=== PATIENT | male | born 1940 | race African-American/Black ===

== ENCOUNTER 2021-12-02 17:15 | Inpatient (IN) | payer MEDICARE, OTHER ==
[~2021-12-02] VITALS: Ht 177.8 cm; Wt 86.6 kg
[~2021-12-02 17:15] MED LIST: AMLO10TA4; ASA; ATOR10TA69; ENAL20TA67; ESOM40CA; FEBU80TA; HCTZ; HYDROCHLOROTHIAZIDE; KLOR CON; POTASSIUM; ULORIC
[2021-12-02] MEDS ORDERED: SODIUM CHLORIDE 0.9% 1,000 ML IV ONE (19:00)
[2021-12-02 19:25] LABS: HEMATOCRIT. 38.6 % (42.0-52.0); HEMOGLOBIN. 13.4 g/dL (14.0-18.0); MEAN CORPUSCULAR VOLUME 92.2 fL (80.0-94.0); MEAN PLATELET VOLUME 9.2 fl (7.4-10.4); PLATELET 185 x1000/uL (130-400); RED BLOOD CELL COUNT 4.19 mill/uL (4.7-6.1); RED CELL DISTRIBUTION WIDTH 15.3 % (11.6-14.6)
[2021-12-02 19:32] LABS: CHLORIDE 103 mEq/L (98-107)
[2021-12-02] MEDS ORDERED: NON FORMULARY PATIENT HOME MED XX SCH (21:00)
[2021-12-02] MEDS ORDERED: CEFTRIAXONE 1 G PREMIX 50 ML IV NR (21:24)
[2021-12-02] MEDS ORDERED: AZITHROMYCIN 500 MG in DEXT 5% WATER 250 ML IV SCH (21:30)
[2021-12-02 22:17] VITALS: BP 131/61
[2021-12-02 22:41] LABS: PLATELET ESTIMATE NORMAL
[2021-12-02] MEDS ORDERED: ACETAMINOPHEN 650MG/20.3ML UDC PO SCH (23:30)
[2021-12-02] MEDS ORDERED: ENOXAPARIN 40MG/0.4ML SYR SUBCUT ONE (23:30)
[2021-12-02] MEDS ORDERED: ZOLPIDEM TARTRATE 5MG TABLET PO PRN (23:30)
[2021-12-03] VITALS: BP 114/56
[2021-12-03] MEDS ORDERED: HYDR12.54 PO ×2 (00:12→00:59)
[2021-12-03] MEDS ORDERED: POTA-79 PO (00:12)
[2021-12-03] MEDS ORDERED: AMLO10TA80 PO (00:12)
[2021-12-03] MEDS ORDERED: BALS750C6 PO (00:12)
[2021-12-03] MEDS ORDERED: ESOM40CA53 MT (00:12)
[2021-12-03] MEDS ORDERED: ENAL20TA18 PO (00:14)
[2021-12-03] MEDS ORDERED: TAMS-11 PO (00:14)
[2021-12-03 00:30] LABS: CLARITY URINE CLEAR (CLEAR); COLOR URINE YELLOW (YELLOW); PROTEIN URINE TRACE (NEGATIVE)
[2021-12-03 00:31] LABS: KETONES URINE NEGATIVE (NEGATIVE); LEUKOCYTE ESTERASE URINE NEGATIVE (NEGATIVE); NITRITE URINE NEGATIVE (NEGATIVE); OCCULT BLOOD URINE NEGATIVE (NEGATIVE); UROBILINOGEN URINE 0.2 E.U./dL (0.2-1.0)
[2021-12-03] MEDS: OMEPRAZOLE 20MG CAPSULE EXTENDED RELEASE PO SCH ×3 (01:48→21:01)
[2021-12-03] MEDS: DEXT 5%/0.45% NACL 1000ML 1,000 ML IV SCH ×2 (01:48→14:32)
[2021-12-03 04:00] VITALS: BP 143/72
[2021-12-03 08:00] VITALS: BP 127/69
[2021-12-03] MEDS: ENALAPRIL 5MG TABLET PO SCH ×2 (08:42→21:01)
[2021-12-03] MEDS: DOCUSATE SODIUM 250MG CAPSULE PO SCH (08:42)
[2021-12-03] MEDS: AMLODIPINE 10MG TABLET PO SCH (08:42)
[2021-12-03] MEDS ORDERED: AMLODIPINE 10MG TABLET PO SCH (09:00)
[2021-12-03 09:24] LABS: MEAN CORPUSCULAR HEMOGLOBIN 31.8 pg (28.0-32.0); MEAN CORPUSCULAR VOLUME 92.8 fL (80.0-94.0); MEAN PLATELET VOLUME 9.2 fl (7.4-10.4); PLATELET 156 x1000/uL (130-400); RED BLOOD CELL COUNT 4.09 mill/uL (4.7-6.1); RED CELL DISTRIBUTION WIDTH 15.1 % (11.6-14.6)
[2021-12-03 09:29] LABS: CHLORIDE 105 mEq/L (98-107)
[2021-12-03 09:33] LABS: D-DIMER 0.7 mg/L FEU (<0.50)
[2021-12-03 09:48] LABS: PHOSPHORUS 2.4 mg/dL (2.5-4.9)
[2021-12-03] MEDS: ENOXAPARIN 40MG/0.4ML SYR SUBCUT SCH (10:22)
[2021-12-03] MEDS: ACETAMINOPHEN 650MG/20.3ML UDC PO PRN (10:22)
[2021-12-03] MEDS ORDERED: NIRM1TAB PO (11:40)
[2021-12-03 12:00] VITALS: BP 106/64
[2021-12-03 13:24] LABS: PLATELET ESTIMATE NORMAL
[2021-12-03] MEDS: BALSALAZIDE DISODIUM 750 MG PO SCH ×2 (14:33→21:01)
[2021-12-03 16:00] VITALS: BP 134/71
[2021-12-03] MEDS: PAXLOVID PO SCH ×2 (16:55)
[2021-12-03 20:00] VITALS: BP 143/69
[2021-12-04] VITALS: BP 127/66
[2021-12-04] MEDS: DEXT 5%/0.45% NACL 1000ML 1,000 ML IV SCH ×2 (00:20→16:28)
[2021-12-04] MEDS ORDERED: AZITHROMYCIN 500 MG in DEXT 5% WATER 250 ML IV SCH (01:00)
[2021-12-04 04:00] VITALS: BP 117/63
[2021-12-04] MEDS: BALSALAZIDE DISODIUM 750 MG PO SCH ×3 (06:15→21:12)
[2021-12-04] MEDS: OMEPRAZOLE 20MG CAPSULE EXTENDED RELEASE PO SCH (06:15)
[2021-12-04 08:00] VITALS: BP 122/71
[2021-12-04] MEDS: DOCUSATE SODIUM 250MG CAPSULE PO SCH (08:31)
[2021-12-04] MEDS: AMLODIPINE 10MG TABLET PO SCH (08:31)
[2021-12-04] MEDS: ENALAPRIL 5MG TABLET PO SCH ×2 (08:31→21:11)
[2021-12-04] MEDS: PAXLOVID PO SCH ×4 (08:31→16:28)
[2021-12-04] MEDS: ENOXAPARIN 40MG/0.4ML SYR SUBCUT SCH (08:32)
[2021-12-04 12:00] VITALS: BP 113/67
[2021-12-04] MEDS: ACETAMINOPHEN 650MG/20.3ML UDC PO PRN (13:12)
[2021-12-04 16:00] VITALS: BP 127/63
[2021-12-04 20:00] VITALS: BP 130/68
[2021-12-04] MEDS: FAMOTIDINE 20MG TABLET PO SCH (21:11)
[2021-12-05] VITALS: BP 144/69
[2021-12-05] MEDS: ACETAMINOPHEN 650MG/20.3ML UDC PO PRN (00:36)
[2021-12-05 04:00] VITALS: BP 123/66
[2021-12-05] MEDS: DEXT 5%/0.45% NACL 1000ML 1,000 ML IV SCH ×2 (05:07→18:11)
[2021-12-05] MEDS: BALSALAZIDE DISODIUM 750 MG PO SCH ×3 (05:08→21:40)
[2021-12-05 08:00] VITALS: BP 132/68
[2021-12-05] MEDS: FAMOTIDINE 20MG TABLET PO SCH ×2 (08:31→21:40)
[2021-12-05] MEDS: AMLODIPINE 10MG TABLET PO SCH (08:31)
[2021-12-05] MEDS: ENALAPRIL 5MG TABLET PO SCH ×2 (08:31→21:40)
[2021-12-05] MEDS: PAXLOVID PO SCH ×4 (08:32→16:35)
[2021-12-05] MEDS: ENOXAPARIN 40MG/0.4ML SYR SUBCUT SCH (08:32)
[2021-12-05] MEDS: DOCUSATE SODIUM 250MG CAPSULE PO SCH (08:33)
[2021-12-05 12:00] VITALS: BP 126/68
[2021-12-05 16:00] VITALS: BP 124/66
[2021-12-05 20:00] VITALS: BP 136/76
[2021-12-06] VITALS: BP 139/73
[2021-12-06 04:00] VITALS: BP 130/72
[2021-12-06] MEDS: DEXT 5%/0.45% NACL 1000ML 1,000 ML IV SCH ×2 (05:10→20:57)
[2021-12-06] MEDS: BALSALAZIDE DISODIUM 750 MG PO SCH ×3 (05:10→20:56)
[2021-12-06 08:00] VITALS: BP 139/70
[2021-12-06] MEDS: DOCUSATE SODIUM 250MG CAPSULE PO SCH (09:00)
[2021-12-06] MEDS: FAMOTIDINE 20MG TABLET PO SCH ×2 (09:21→20:57)
[2021-12-06] MEDS: ACETAMINOPHEN 650MG/20.3ML UDC PO PRN (09:22)
[2021-12-06] MEDS: ENALAPRIL 5MG TABLET PO SCH ×2 (09:22→20:57)
[2021-12-06] MEDS: AMLODIPINE 10MG TABLET PO SCH (09:22)
[2021-12-06] MEDS: PAXLOVID PO SCH ×4 (09:23→16:52)
[2021-12-06] MEDS: ENOXAPARIN 40MG/0.4ML SYR SUBCUT SCH (09:26)
[2021-12-06 12:00] VITALS: BP 138/58
[2021-12-06] MEDS ORDERED: IBUPROFEN 600MG TABLET PO PRN (15:15)
[2021-12-06] MEDS ORDERED: ALLOPURINOL 100 MG TABLET PO NR (15:15)
[2021-12-06 16:00] VITALS: BP 138/69
[2021-12-06] MEDS ORDERED: METHYLPREDNISOLONE 4MG TABLET PO NR (16:30)
[2021-12-06 18:25] LABS: BASOPHILS % 0.4 % (0.0-2.0); EOSINOPHILS % 1.3 % (0.0-5.0); HEMATOCRIT. 38.1 % (42.0-52.0); HEMOGLOBIN. 12.9 g/dL (14.0-18.0); LYMPHOCYTES % 26.8 % (20.0-50.0); MEAN CORPUSCULAR HEMOGLOBIN 31.5 pg (28.0-32.0); MEAN CORPUSCULAR VOLUME 93.4 fL (80.0-94.0); MEAN PLATELET VOLUME 8.8 fl (7.4-10.4); MONOCYTES % 14.3 % (2.0-8.0); NEUTROPHILS % 57.2 % (40.0-76.0); PLATELET 175 x1000/uL (130-400); RED BLOOD CELL COUNT 4.08 mill/uL (4.7-6.1); RED CELL DISTRIBUTION WIDTH 14.8 % (11.6-14.6)
[2021-12-06 18:36] LABS: CHLORIDE 106 mEq/L (98-107)
[2021-12-06 20:00] VITALS: BP 133/73
[2021-12-07] VITALS: BP 130/71
[2021-12-07 04:00] VITALS: BP 144/80
[2021-12-07] MEDS: BALSALAZIDE DISODIUM 750 MG PO SCH ×2 (05:10→14:00)
[2021-12-07 08:00] VITALS: BP 147/77
[2021-12-07] MEDS ORDERED: ALLOPURINOL 100 MG TABLET PO SCH (09:00)
[2021-12-07] MEDS ORDERED: METHYLPREDNISOLONE 4MG TABLET PO SCH (09:00)
[2021-12-07] MEDS: ENOXAPARIN 40MG/0.4ML SYR SUBCUT SCH (09:29)
[2021-12-07] MEDS: FAMOTIDINE 20MG TABLET PO SCH (09:29)
[2021-12-07] MEDS: ENALAPRIL 5MG TABLET PO SCH (09:29)
[2021-12-07] MEDS: DOCUSATE SODIUM 250MG CAPSULE PO SCH (09:29)
[2021-12-07] MEDS: AMLODIPINE 10MG TABLET PO SCH (09:29)
[2021-12-07] MEDS: PAXLOVID PO SCH ×4 (09:30→16:01)
[2021-12-07] MEDS: DEXT 5%/0.45% NACL 1000ML 1,000 ML IV SCH (09:38)
[2021-12-07 12:00] VITALS: BP 127/71
[2021-12-07 15:41] VITALS: BP 127/72
[2021-12-07 16:00] VITALS: BP 127/72
== END 2021-12-07 17:05 | disposition home or self-care (01) | DRG 178 ==
LOC: ER 17:15 → EDBEDREQ 19:10 → MICUSO 21:00 → EDBEDREQ 21:17 → 7EST 22:30
PROVIDERS: ADMIT Internal Medicine Nephrology; ATTEND Internal Medicine Nephrology
DX: U07.1 COVID-19 (principal); I69.351 Hemiplegia and hemiparesis following cerebral infarction affecting right dominant side; I12.9 Hypertensive chronic kidney disease with stage 1 through stage 4 chronic kidney disease, or unspecified chronic kidney disease; F48.8 Other specified nonpsychotic mental disorders; N18.2 Chronic kidney disease, stage 2 (mild); C61 Malignant neoplasm of prostate; N40.0 Benign prostatic hyperplasia without lower urinary tract symptoms; K21.9 Gastro-esophageal reflux disease without esophagitis; E78.00 Pure hypercholesterolemia, unspecified; M19.90 Unspecified osteoarthritis, unspecified site; M10.9 Gout, unspecified; E78.5 Hyperlipidemia, unspecified; G89.29 Other chronic pain; M47.9 Spondylosis, unspecified; M48.00 Spinal stenosis, site unspecified; Z23 Encounter for immunization; Z79.899 Other long term (current) drug therapy; Z85.46 Personal history of malignant neoplasm of prostate
CPT/HCPCS: 36415; 71045; 80048; 80053; 81003; 83735; 84100; 84550; 85025; 85379; 85384; 87426; 99285; C9803; J0456; J0696; J1650; J7030; J7060; J7509

== ENCOUNTER 2024-08-01 10:09 | Emergency (ER) | payer MEDICARE, OTHER ==
[~2024-08-01] VITALS: Ht 177.8 cm; Wt 91.0 kg
[~2024-08-01 10:09] MED LIST changes: -AMLO10TA4; +AMLO10TA80 PO; -ASA; -ATOR10TA69; +ATOR20TA65 PO; +BALS750C6 PO; +BISA-81 PO; +DICL100G58 TP; +ENAL-79 PO; -ENAL20TA67; -ESOM40CA; +ESOM40CA65 MT; -FEBU80TA; -HCTZ; +HYDR-4001 PO; +HYDR12.54 PO; -HYDROCHLOROTHIAZIDE; -KLOR CON; +LACT-390 PO; +LIDO-53 TP; +POTA-354 PO; -POTASSIUM; +SENN8.8S8 PO; +TAMS-54 PO; -ULORIC
[2024-08-01 10:23] VITALS: O2SAT 97
[2024-08-01 12:48] LABS: BASOPHILS % 0.5 % (0.0-2.0); EOSINOPHILS % 1.9 % (0.0-5.0); HEMOGLOBIN. 12.8 g/dL (14.0-18.0); LYMPHOCYTES % 22.1 % (20.0-50.0); MEAN CORPUSCULAR HEMOGLOBIN 30.4 pg (28.0-32.0); MEAN CORPUSCULAR HGB CONC 33.7 g/dL (31.0-37.0); MEAN PLATELET VOLUME 7.9 fl (7.4-10.4); MONOCYTES % 8.2 % (2.0-8.0); NEUTROPHILS % 67.3 % (40.0-76.0); PLATELET 300 x1000/uL (130-400); RED BLOOD CELL COUNT 4.22 mill/uL (4.7-6.1); RED CELL DISTRIBUTION WIDTH 14.8 % (11.6-14.6); WHITE BLOOD COUNT 6.6 x1000/uL (4.5-11.0)
[2024-08-01 12:59] LABS: CHLORIDE 109 mEq/L (98-107); POTASSIUM 4.4 mEq/L (3.5-5.1); SODIUM 143 mEq/L (136-145)
[2024-08-01 13:00] LABS: CALCIUM 9.6 mg/dL (8.7-10.4); CARBON DIOXIDE 28 mEq/L (21-32)
[2024-08-01 13:05] LABS: CREATININE 1.2 mg/dL (0.6-1.3); GLUCOSE 89 mg/dL (70-105); UREA NITROGEN BLOOD 14 mg/dL (9-23)
[2024-08-01] MEDS ORDERED: HYDROMORPHONE HCL/PF 2MG/ML INJ IM PRN (14:15)
[2024-08-01] MEDS ORDERED: ACETAMINOPHEN 325MG TABLET PO ONE (14:45)
[2024-08-01 15:00] LABS: CLARITY URINE TURBID (CLEAR); COLOR URINE ORANGE (YELLOW); GLUCOSE URINE NEGATIVE (NEGATIVE); KETONES URINE NEGATIVE (NEGATIVE); LEUKOCYTE ESTERASE URINE 3+ (NEGATIVE); NITRITE URINE NEGATIVE (NEGATIVE); OCCULT BLOOD URINE 3+ (NEGATIVE); PH URINE 6.5 (4.5-8.0); PROTEIN URINE 2+ (NEGATIVE); SPECIFIC GRAVITY URINE 1.012 (1.005-1.030); UROBILINOGEN URINE 0.2 E.U./dL (0.2-1.0)
[2024-08-01 15:57] LABS: RBC URINE 50-100 /hpf (0-2); WBC URINE TNTC /hpf (0-2)
[2024-08-01 15:58] LABS: BACTERIA URINE TRACE; HYALINE CASTS URINE 0-5 /lpf; RENAL EPITHELIAL CELLS URINE 1+ /lpf; SQUAMOUS EPITHELIAL CELL URINE RARE /lpf (RARE/1+)
[2024-08-01 15:59] LABS: MUCUS URINE TRACE /lpf (NONE/TRACE)
[2024-08-01] MEDS: MORPHINE SULFATE 4 MG/ML INJ (FOR IV/IM USE) IM NR (16:00)
[2024-08-01] MEDS ORDERED: CEPHALEXIN 250MG CAPSULE PO NR (16:03)
[2024-08-01] MEDS ORDERED: CEPH500C2 MT (16:18)
[2024-08-01] MEDS ORDERED: HYDR-4001 MT (16:19)
[2024-08-01] MEDS ORDERED: CEFTRIAXONE SODIUM 1G VIAL IM ONE (16:30)
[2024-08-01] MEDS: CEFTRIAXONE SODIUM 1G VIAL IM SCH (17:00)
[2024-08-01 17:02] VITALS: RESP 14
[2024-08-01] MEDS: HYDROMORPHONE HCL/PF 1MG/ML INJ IM PRN (17:02)
[2024-08-01] MEDS: ACETAMINOPHEN 325MG TABLET PO SCH (20:15)
[2024-08-01 20:22] VITALS: BP 146/83; PULSE 85; TEMP 36.7; O2SAT 98
== END 2024-08-01 20:48 ==
LOC: ER 10:09
DX: N39.0 Urinary tract infection, site not specified (principal); I10 Essential (primary) hypertension; E78.00 Pure hypercholesterolemia, unspecified; Z86.73 Personal history of transient ischemic attack (TIA), and cerebral infarction without residual deficits; Z85.46 Personal history of malignant neoplasm of prostate; Z79.899 Other long term (current) drug therapy
CPT/HCPCS: 99285; 80048; 81003; 85025; 85610; 87086; 87186; 87077; 36415; 96372; J0696